=== PATIENT | female | born 1965 | race Hispanic/Latino ===

== ENCOUNTER 2021-04-13 07:49 | Emergency (ER) | payer SELFPAY ==
[~2021-04-13] VITALS: Ht 152.4 cm; Wt 97.5 kg
[2021-04-13 07:57] VITALS: BP 165/82
[2021-04-13] MEDS ORDERED: KETOROLAC 15MG/ML VIAL (15MG/ML) IM ONE (08:30)
[2021-04-13] MEDS ORDERED: IBUP-2070 PO (08:33)
[2021-04-13] MEDS ORDERED: ACYC-138 PO (08:33)
[2021-04-13] MEDS ORDERED: TYL3B PO (08:33)
== END 2021-04-13 09:04 | disposition home or self-care (01) ==
LOC: EDH 07:49
DX: B02.9 Zoster without complications (principal)

== ENCOUNTER 2022-07-01 19:23 | Emergency (ER) | payer BC, OTHER ==
[~2022-07-01] VITALS: Ht 152.4 cm; Wt 99.3 kg
[~2022-07-01 19:23] MED LIST: ACYC-138 PO; IBUP-2070 PO; TYL3B PO
[2022-07-01 19:50] VITALS: BP 153/67
[2022-07-01] MEDS ORDERED: IBUPROFEN 600 MG TABLET PO ONE (20:00)
[2022-07-01] MEDS ORDERED: IBUP-2070 PO (20:03)
== END 2022-07-01 20:15 | disposition home or self-care (01) ==
LOC: EDH 19:23
DX: S90.121A Contusion of right lesser toe(s) without damage to nail, initial encounter (principal); Z79.1 Long term (current) use of non-steroidal anti-inflammatories (NSAID); W22.8XXA Striking against or struck by other objects, initial encounter; Y93.89 Activity, other specified; Y92.89 Other specified places as the place of occurrence of the external cause; Y99.8 Other external cause status
CPT/HCPCS: 73660